=== PATIENT | female | born 1955 | race Caucasian/White ===

== ENCOUNTER 2019-08-16 16:42 | Emergency (ER) | payer OTHER ==
[2019-08-16 17:19] VITALS: BP 168/93
[2019-08-16] MEDS ORDERED: DUONEB 0.5-3 MG/3 ml Neb IH ONE ×2 (17:29→18:12)
[2019-08-16] MEDS ORDERED: TYLENOL EXTRA STRENGTH 500 MG PO STA (17:30)
--- NOTE | 2019-08-16 17:38 | ERPHSYRPT ---
- History of Present Illness Time Seen by Provider: 08/16/19 17:00 Source: patient, family Exam Limitations: no limitations Patient Subjective Stated Complaint: PATIENT STATES " WENT TO PCP 08/15/19 AND WAS DX WITH FLU A. PCP STATED IF I DIDNT FEEL ANY BETTER TO COME TO ER. PATIENT STATES " I HAVENT REALLY BEEN ABLE TO EAT OR DRINK ANYTHING LAST COUPLE OF DAYS. PATIENT STATES SHE IS HAVING NAUSEA BUT NO VOMITING. PATIENT STATES HAD MULTIPLE LOOSE STOOLS YESTERDAY. Triage Nursing Assessment: PATIENT AMBULATED TO ROOM IN ER. GAIT STEADY. PATIENT ABLE TO ANSWER QUESTIONS APPROPRIATLEY. PATIENT ALERT AND ORIENTATED TIMES 4. PATIENT OBERALL FLUSHED. PATIENT NOTED WITH DRY COUGH. PATIENT WITH WHEEZES THROUGHOUT RIGHT LUNG BASES A/P. LEFT LUNG BASES DIMINISHED THROUGHOUT A /P. PATIENT STATES SHE IS SOB WHEN AT REST. 02 SAT 96% ROOM AIR. CAP REFILL LESS THAN 3 SECONDS. ORAL MUCOSA CLEAN MOIST. Physician History: 64 years old female with history of hypertension, hyperlipidemia, positive influenza B yesterday presented in the ER with chief complaint of five-day history of URI symptoms with cough congestion, generalized body ache along with nausea and off and on diarrhea. Diarrhea is better since morning. Patient reports she has a bad metallic taste in her mouth stopping her to eat or drink anything. She feels weak tired and dehydrated with no energy to do anything. Her fever was better last night but again had a fever today with a MAXIMUM TEMPERATURE of 101.4. Because of repeated coughing she is having soreness in the chest with some shortness of breath as well. Worried about getting pneumonia.she's been using nebulizer not much relief. Timing/Duration: day(s) (5), gradual onset, worse Cough Quality/Degree: moderate, dry cough Possible Cause: no prior episodes Modifying Factors: Improves With: albuterol nebulizer Associated Symptoms: fever, chills, chest pain/soreness, cough, headache, muscle aches, nasal congestion, shortness of breath, sore throat Allergies/Adverse Reactions: No Known Drug Allergies Allergy (Unverified 08/16/19 16:49) Hx Tetanus, Diphtheria Vaccination/Date Given: No Hx Influenza Vaccination/Date Given: No Hx Pneumococcal Vaccination/Date Given: No Immunizations Up to Date: Yes - Review of Systems Constitutional: Fever, Chills, Fatigue, Malaise Eyes: No Symptoms Ears, Nose, & Throat: Nose Congestion Respiratory: Cough, Wheezing Cardiac: Chest Pain Abdominal/Gastrointestinal: Nausea, Diarrhea Genitourinary Symptoms: No Symptoms Musculoskeletal: Myalgias Skin: No Symptoms Neurological: No Symptoms Psychological: No Symptoms Endocrine: No Symptoms Hematologic/Lymphatic: No Symptoms Immunological/Allergic: No Symptoms - Past Medical History Neurological History: No Pertinent History Cardiac History: Hypertension Respiratory History: No Pertinent History Endocrine Medical History: No Pertinent History Musculoskeletal History: Osteoarthritis GI Medical History: No Pertinent History History: No Pertinent History Psycho-Social History: No Pertinent History Female Reproductive Disorders: No Pertinent History Other Medical History: foot surgery, B TKA, rotator cuff R, R elbow surgery. - Past Surgical History Past Surgical History: Yes Neuro Surgical History: No Pertinent History Cardiac: No Pertinent History Respiratory: No Pertinent History Gastrointestinal: No Pertinent History Genitourinary: No Pertinent History Musculoskeletal: Joint Replacement Female Surgical History: Tubal Ligation Other Surgical History: BILATERAL KNEE REPLACEMENTS - Social History Smoking Status: Former smoker Exposure to second hand smoke: Yes Drug Use: none Patient Lives Alone: No - Female History Hx Last Menstrual Period: POST Hx Now: No - Nursing Vital Signs Nursing Vital Signs: Initial Vital Signs Temperature 101.4 F 08/16/19 16:51 Pulse Rate 100 H 08/16/19 16:51 Respiratory Rate 18 08/16/19 16:51 Blood Pressure 168/93 08/16/19 16:51 O2 Sat by Pulse Oximetry 96 08/16/19 16:51 Pain Scale Pain Intensity 0 - Physical Exam General Appearance: no apparent distress Eye Exam: PERRL/EOMI, eyes nml inspection Ears, Nose, Throat Exam: TMs normal, pharyngeal erythema Neck Exam: normal inspection, non-tender, supple, full range of motion Respiratory Exam: chest tenderness, wheezing, other Cardiovascular Exam: regular rate/rhythm, normal heart sounds Gastrointestinal/Abdomen Exam: soft, normal bowel sounds, No tenderness, No distention Back Exam: normal inspection SpO2: 96 Ordered Tests: Medication Summary Discontinued Medications Generic Name Dose Route Start Last Admin Trade Name Freq PRN Reason Stop Dose Admin Acetaminophen 1,000 mg 08/16/19 17:30 08/16/19 19:30 Tylenol Extra Strength 500 Mg PO 08/16/19 17:31 1,000 mg STAT STA Administration Acetaminophen Confirm 08/16/19 19:29 Tylenol Extra Strength 500 Mg Administered 08/16/19 19:30 Dose 1,000 mg .ROUTE .STK-MED ONE Albuterol/Ipratropium 3 ml 08/16/19 17:29 08/16/19 18:19 Duoneb 0.5-3 Mg/3 Ml Neb IH 08/16/19 17:30 3 ml STAT ONE Administration Albuterol/Ipratropium Confirm 08/16/19 18:12 Duoneb 0.5-3 Mg/3 Ml Neb Administered 08/16/19 18:13 Dose 3 ml IH .STK-MED ONE Azithromycin Confirm 08/16/19 20:51 Zithromax 250 Mg Tablet Administered 08/16/19 20:52 Dose 500 mg .ROUTE .STK-MED ONE Ceftriaxone Sodium/Dextrose Confirm 08/16/19 20:50 Rocephin 1 Gm-D5w 50 Ml Bag Administered 08/16/19 20:51 Dose 1 g in 50 mls @ ud IV .STK-MED ONE Oseltamivir Phosphate Confirm 08/16/19 20:51 Tamiflu 75mg Capsule Administered 08/16/19 20:52 Dose 75 mg PO .STK-MED ONE Lab/Rad Data: Laboratory Result Diagrams 08/16/19 17:24 08/16/19 Unknown Laboratory Results 08/16/19 08/16/19 08/16/19 Range/Units Unknown 18:22 17:24 WBC 3.0 L (4.0-10.5) K/mm3 RBC 4.55 (4.1-5.4) M/mm3 Hgb 13.9 (12.0-16.0) gm/dl Hct 41.3 (35-47) % MCV 90.8 (78-100) fl MCH 30.5 (26-32) pg MCHC 33.7 (32-36) g/dl RDW 12.8 (11.5-14.0) % Plt Count 172 (150-450) K/mm3 MPV 9.8 (7.5-11.0) fl Gran % 68.8 H (36.0-66.0) % Eos # (Auto) 0 (0-0.5) Absolute Lymphs (auto) 0.59 L (1.0-4.6) Absolute Monos (auto) 0.33 (0.0-1.3) Lymphocytes % 20.0 L (24.0-44.0) % Monocytes % 11.2 (0.0-12.0) % Eosinophils % 0.0 (0.00-5.0) % Basophils % 0.0 (0.0-0.4) % Absolute Granulocytes 2.03 (1.4-6.9) Basophils # 0 (0-0.4) Sodium 135 L (137-145) mmol/L Potassium 3.7 (3.5-5.1) mmol/L Chloride 101 (98-107) mmol/L Carbon Dioxide 24 (22-30) mmol/L Anion Gap 13.5 (5-15) MEQ/L BUN 17 (7-17) mg/dL Creatinine 0.63 (0.52-1.04) mg/dL Estimated GFR > 60.0 ML/MIN Glucose 126 H (74-106) mg/dL Lactic Acid 1.0 (0.4-2.0) Calcium 9.0 (8.4-10.2) mg/dL Total Bilirubin 0.60 (0.2-1.3) mg/dL AST 45 H (14-36) U/L ALT 24 (0-35) U/L Alkaline Phosphatase 63 (38-126) U/L Serum Total Protein 7.6 (6.3-8.2) g/dL Albumin 4.1 (3.5-5.0) g/dL - Progress Progress Note: care was transferred top at end of my shift with pending workup at [facility] down time - Departure Referrals: LIGIA GONZALEZ MD [Primary Care Provider] -
[2019-08-16 18:11] LABS: Absolute Neutrophil Ct (ANC) 2.03 (1.4-6.9); Basophil (Absolute #) 0 (0-0.4); Eosinophil (Absolute #) 0 (0-0.5); Hematocrit 41.3 % (35-47); Hemoglobin 13.9 gm/dl (12.0-16.0); Lymphocyte (Absolute #) 0.59 (1.0-4.6); Mean Cell Volume 90.8 fl (78-100); Mean Corpuscular Hemoglobin 30.5 pg (26-32); Mean Corpuscular Hgb Concent. 33.7 g/dl (32-36); Mean Platelet Volume 9.8 fl (7.5-11.0); Monocyte (Absolute #) 0.33 (0.0-1.3); Monocytes % 11.2 % (0.0-12.0); Neutrophil % 68.8 % (36.0-66.0); Platelet Count 172 K/mm3 (150-450); Red Blood Count 4.55 M/mm3 (4.1-5.4); Red Cell Distribution Width 12.8 % (11.5-14.0)
[2019-08-16 18:28] LABS: ALBUMIN 4.1 g/dL (3.5-5.0); ALKALINE PHOSPHATASE 63 U/L (38-126); ANION GAP 13.5 MEQ/L (5-15); BLOOD UREA NITROGEN 17 mg/dL (7-17); CHLORIDE 101 mmol/L (98-107); Carbon Dioxide 24 mmol/L (22-30); Creatinine 1 0.63 mg/dL (0.52-1.04); Glucose 126 mg/dL (74-106); Potassium 3.7 mmol/L (3.5-5.1); SGOT/AST 45 U/L (14-36); SGPT/ALT 24 U/L (0-35); SODIUM 135 mmol/L (137-145); Total Protein 7.6 g/dL (6.3-8.2)
[2019-08-16 18:32] VITALS: PULSE 89
[2019-08-16] MEDS ORDERED: TYLENOL EXTRA STRENGTH 500 MG ONE (19:29)
[2019-08-16] MEDS ORDERED: ROCEPHIN 1 Gm-D5w 50 ml Bag** 1 G/50 ML IVPB IV ONE (20:50)
[2019-08-16] MEDS ORDERED: Tamiflu 75MG Capsule PO ONE (20:51)
[2019-08-16] MEDS ORDERED: Zithromax 250 MG TABLET ONE (20:51)
--- NOTE | 2019-08-17 09:17 | XRAY ---
Indication: Fever, cough, and congestion. Positive influenza A. Comparison: None PA/lateral chest demonstrates bilateral subsegmental atelectasis/scarring in the mid to lower lung obrien. No focal infiltrate, consolidation, or large effusion. Heart is not enlarged. Bony thorax intact with mild osteopenia and degenerative changes. Impression: Nonacute chest with chronic features.
[2019-08-30 13:20] VITALS: O2SAT 96
== END 2019-08-16 22:30 | disposition home or self-care (01) ==
LOC: ED 16:42
DX: J20.9 Acute bronchitis, unspecified (principal); J09.X2 Influenza due to identified novel influenza A virus with other respiratory manifestations
CPT/HCPCS: 36415; 71046; 80053; 83605; 85025; 87040; 94150; 94640; 96365; 99284; J0696; A9270-GY

== ENCOUNTER 2022-11-28 11:07 | Emergency (ER) | payer MEDICARE, OTHER ==
--- NOTE | 2022-11-28 12:01 | ERPHSYRPT ---
- History of Present Illness Time Seen by Provider: 11/28/22 11:39 Historian: patient Exam Limitations: no limitations Patient Subjective Stated Complaint: Pt has been constipated for 5 days and has taken miralax, ducolax, enamas, milk of magnesia, suppositories and has only had a small amount of liquid diarhhea and a few small krishna Triage Nursing Assessment: Pt brought to the ER by her , hypertensive, rates pain as an 8/10 in her lower abdomen, pt has tried everything to go with no luck, pain with palpatation in the left quadrants, pulses normal, skin n/w/d Physician History: Had been taking norco for kidney stone, now constipated for 5 d, OTC laxatives not doing much, no vomiting or fever. Timing/Duration: day(s) (5) Activities at Onset: none Quality: cramping Abdominal Pain Onset Location: LLQ Pain Radiation: no radiation Severity of Pain-Max: moderate Severity of Pain-Current: moderate Associated Symptoms: denies symptoms Previous symptoms: same symptoms as today (this is worse than usual) Allergies/Adverse Reactions: chlordiazepoxide [From Librium] Allergy (Verified 11/28/22 11:46) pentazocine [From Talwin] Allergy (Verified 11/28/22 11:46) propoxyphene [From Darvocet-N] Allergy (Verified 11/28/22 11:46) Home Medications: Albuterol Sulfate [Albuterol Sulfate Hfa] 2 inh PO UD 11/28/22 [History] Amlodipine Besylate [Norvasc] 10 mg PO DAILY 11/28/22 [History] Atorvastatin Calcium 40 mg PO DAILY 11/28/22 [History] Hydrocodone/Acetaminophen [Hydrocodone-Acetamin 10-325 mg] 1 tablet PO QID PRN 11/28/22 [History] Naproxen 500 mg [Naprosyn 500 MG] 500 mg PO BID 11/28/22 [History] Omeprazole 40 mg PO DAILY 11/28/22 [History] Spironolactone 25 mg [Aldactone 25 MG] 25 mg PO DAILY 11/28/22 [History] Tizanidine HCl 4 mg [Zanaflex 4 MG] 8 mg PO HS 11/28/22 [History] lisinopriL [Zestril] 40 mg PO DAILY 11/28/22 [History] Hx Tetanus, Diphtheria Vaccination/Date Given: No Hx Influenza Vaccination/Date Given: No Hx Pneumococcal Vaccination/Date Given: No Travel Risk - International Travel Have you traveled outside of the country in past 3 weeks: No - Coronavirus Screening Are you exhibiting any of the following symptoms?: No Close contact with a COVID-19 positive Pt in past 14-21 Days: No - Vaccine Status Have you recieved a Covid-19 vaccination: Yes Client Success Director: [facility] - Vaccination Dates Date of 2cond Vaccination (if applicable): 2020 - Review of Systems Constitutional: No Symptoms Eyes: No Symptoms Ears, Nose, & Throat: No Symptoms Respiratory: No Symptoms Cardiac: No Symptoms Abdominal/Gastrointestinal: Constipation Genitourinary Symptoms: No Symptoms Musculoskeletal: No Symptoms Skin: No Symptoms Neurological: No Symptoms Psychological: No Symptoms Endocrine: No Symptoms Hematologic/Lymphatic: No Symptoms Immunological/Allergic: No Symptoms All Other Systems: Reviewed and Negative - Past Medical History Pertinent Past Medical History: Yes Neurological History: No Pertinent History Cardiac History: Hypertension Respiratory History: No Pertinent History Endocrine Medical History: No Pertinent History Musculoskeletal History: Osteoarthritis GI Medical History: No Pertinent History History: No Pertinent History Psycho-Social History: No Pertinent History Female Reproductive Disorders: No Pertinent History Other Medical History: foot surgery, B TKA, rotator cuff R, R elbow surgery. - Past Surgical History Past Surgical History: Yes Neuro Surgical History: No Pertinent History Cardiac: No Pertinent History Respiratory: No Pertinent History Gastrointestinal: No Pertinent History Genitourinary: No Pertinent History Musculoskeletal: Joint Replacement Female Surgical History: Tubal Ligation Other Surgical History: BILATERAL KNEE REPLACEMENTS - Social History Smoking Status: Former smoker Exposure to second hand smoke: Yes Drug Use: none Patient Lives Alone: No - Nursing Vital Signs Nursing Vital Signs: Initial Vital Signs Temperature 97.9 F 11/28/22 11:26 Pulse Rate 100 H 11/28/22 11:26 Blood Pressure 174/96 11/28/22 11:26 O2 Sat by Pulse Oximetry 98 11/28/22 11:26 Pain Scale Pain Intensity 8 - Physical Exam General Appearance: no apparent distress Eye Exam: PERRL/EOMI Ears, Nose, Throat Exam: normal ENT inspection Neck Exam: normal inspection Respiratory Exam: normal breath sounds, lungs clear Cardiovascular Exam: regular rate/rhythm, normal heart sounds Gastrointestinal/Abdomen Exam: soft, normal bowel sounds, distention (mild), No tenderness Pelvic Exam: not done Rectal Exam: deferred Back Exam: normal inspection Extremity Exam: normal inspection, normal range of motion Neurologic Exam: alert, oriented x 3, cooperative Skin Exam: normal color, warm, dry SpO2 Interpretation: normal SpO2: 98 O2 Delivery: Room Air - Course Nursing assessment & vital signs reviewed: Yes - Radiology Exams Abdomen X-ray Interpretation: Interpreted by me, Other (mild constipation and gas) Ordered Tests: Active Orders 24 hr Category Date Time Status Enema STAT Care 11/28/22 11:56 Active KUB Stat Exams 11/28/22 11:55 Taken - Progress Progress: improved Progress Note: 11/28/22 14:59 Nurse gave an enema with good result, patient feels better, ready to go. Medical Desision Making - Diagnostic Testing Diagnostic test were ordered, analyzed, and reviewed by me: Yes Radiological Interpretation: Interpreted by me - Risk of complications Low Risk: Low risk of morbidity from additional dx testing or treatment - Departure Departure Disposition: Extended Care Facility Clinical Impression: Constipation Qualifiers: Constipation type: drug induced constipation Qualified Code(s): K59.03 - Drug induced constipation Condition: Stable Critical Care Time: No Additional Instructions: Continue laxatives as needed, see PCP if not better.
[2022-11-28 15:11] VITALS: BP 107/76; PULSE 93; O2SAT 97
--- NOTE | 2022-11-28 19:00 | XRAY ---
Indication: Abdomen pain and constipation. Comparison: None KUB nonacute and nonobstructed with little fecal debris in left hemicolon. Solid organs unremarkable. Osseous structures intact with osteopenia and moderate degenerative changes throughout spine.
== END 2022-11-28 15:08 | disposition home or self-care (01) ==
LOC: ED 11:07
DX: K59.03 Drug induced constipation (principal); T40.2X5A Adverse effect of other opioids, initial encounter; I10 Essential (primary) hypertension; Z79.891 Long term (current) use of opiate analgesic; Z79.899 Other long term (current) drug therapy
CPT/HCPCS: 74018; 99283

== ENCOUNTER 2023-01-20 05:48 | Day surgery (SDC) | payer MEDICARE, OTHER ==
[2023-01-20] MEDS ORDERED: Lactated Ringers 1,000 ML IV SCH (06:30)
[2023-01-20] MEDS ORDERED: DIPRIVAN 200 MG/20 ML IV ONE ×2 (07:33→07:43)
[2023-01-20] MEDS ORDERED: Versed 2 MG/2 ML Injection ONE (07:33)
--- NOTE | 2023-01-20 08:15 | OP ---
SURGERY DATE/TIME: 01/20/2023 0732 PREOPERATIVE DIAGNOSIS: Screening colonoscopy. POSTOPERATIVE DIAGNOSES: 1) Colon polyps x2. 2) Diverticulosis. PROCEDURE: Colonoscopy. SURGEON: Juan A Buenrostro M.D. ANESTHESIA: MAC by Jese Tinajero CRNA. ESTIMATED BLOOD LOSS: None. SPECIMENS: Two hot forceps polypectomies. DESCRIPTION OF PROCEDURE: After informed written consent was obtained, the patient was taken to the endoscopy suite. She was placed in left lateral decubitus position and anesthesia was titrated to desired level of consciousness. Digital rectal exam showed normal sphincter tone and no internal lesions. The scope was inserted into the rectum and sequentially the entire colonic mucosa was traversed. The level of cecum was reached and verified with direct visualization of the ileocecal valve. Upon withdrawal careful mucosal inspection revealed no gross abnormalities until the transverse colon was reached. There was a small sessile polyp grasped with forceps, cauterized and removed in its entirety with no bleeding and sent to pathology. Upon further withdrawal there was another similar sessile polyp in the descending colon which likewise was removed with hot forceps with no bleeding and adequate removal of the lesion. The remainder of the exam was unremarkable other than scattered diverticula. Prior to withdrawal retroflexion showed no internal lesions. The scope was removed. The patient was transferred to the recovery room in good condition.
[2023-01-20 08:20] VITALS: PULSE 69
[2023-01-20 08:36] VITALS: BP 123/80; O2SAT 98
== END 2023-01-20 08:40 | disposition home or self-care (01) ==
LOC: SDC 05:48
PROVIDERS: ATTEND Family Medicine
DX: Z12.11 Encounter for screening for malignant neoplasm of colon (principal); K63.5 Polyp of colon; K57.30 Diverticulosis of large intestine without perforation or abscess without bleeding
CPT/HCPCS: J2250; J2704